=== PATIENT | male | born 1975 | race Caucasian/White ===

== ENCOUNTER 2020-11-29 13:07 | Emergency (ER) | payer BC ==
[~2020-11-29] VITALS: Ht 175.3 cm; Wt 83.9 kg
[~2020-11-29 13:07] MED LIST: ALBU90OI; ALBU90OI6 INH; CEPH500 PO; Flomax0.4 MG PO; HYDACE5 PO; HYDMOR4 PO; Ibuprofen Ib200 MG; NAPR500 PO; OXYACE5T PO; Zofran Odt8 MG SL
[2020-11-29 14:10] LABS: Alanine Aminotransfer (ALT/SGP 73 U/L (12-78); Albumin, Blood 4.5 g/dL (3.4-5.0); Albumin/Globulin Ratio 1.3 (0.8-1.8); Alk Phos 65 U/L (50-136); Anion Gap 5 mmol/L (6-16); Aspartate Aminotrans (AST/SGOT 101 U/L (12-37); BASOPHILS ABSOLUTE AUTO 0.06 K/mm3 (0.00-0.23); BASOPHILS PERCENT AUTO 0 % (0-2); Bilirubin, Total 0.9 mg/dL (0.1-1.0); Blood Urea Nitrogen 22 mg/dL (8-24); Bun/Creatinine Ratio 16.3 (12.0-20.0); CO2, Blood 27 mmol/L (21-32); Calcium, Blood 9.1 mg/dL (8.5-10.1); Chloride, Blood 100 mmol/L (98-108); Creatinine, Blood 1.35 mg/dL (0.60-1.20); EOSINOPHILS ABSOLUTE AUTO 0.01 K/mm3 (0.00-0.68); EOSINOPHILS PERCENT AUTO 0 % (0-6); Globulin, Blood 3.5 g/dL (2.2-4.0); Glomerular Filtration Rate >60 (60-); Glucose, Blood 109 mg/dL (70-99); Hematocrit 45.7 % (37.0-53.0); IMMATURE GRAN PERCENT AUTO 1 % (0-1); LYMPHOCYTES ABSOLUTE AUTO 1.08 K/mm3 (0.84-5.20); LYMPHOCYTES PERCENT AUTO 8 % (21-46); MONOCYTES PERCENT AUTO 6 % (4-13); Mean Corpuscular HGB 29.1 pg (26.0-34.0); Mean Corpuscular HGB Conc 32.8 g/dL (31.5-36.5); Mean Corpuscular Volume 89 fL (80-100); Mean Platelet Volume 11.7 fL (9.1-12.4); NEUTROPHILS ABSOLUTE AUTO 11.69 K/mm3 (1.96-9.15); NEUTROPHILS PERCENT AUTO 85 % (41-73); Platelet Count 270 K/mm3 (150-400); Potassium, Blood 3.8 mmol/L (3.5-5.5); RDW Standard Deviation 42.6 fL (35.1-46.3); Red Blood Cell Count 5.15 M/mm3 (4.30-5.90); Sodium, Blood 132 mmol/L (136-145); White Blood Cell Count 13.74 K/mm3 (4.00-11.30)
[2020-11-29] MEDS ORDERED: ONDA4ODT MM (15:19)
[2020-11-29] MEDS ORDERED: Flomax0.4 MG PO (15:19)
[2020-11-29] MEDS ORDERED: Norco 5-325 Ta1 EACH PO (15:19)
== END 2020-11-29 15:27 | disposition home or self-care (01) ==
LOC: ER 13:07
PROVIDERS: Emergency Medicine
DX: N13.2 Hydronephrosis with renal and ureteral calculous obstruction (principal); F17.200 Nicotine dependence, unspecified, uncomplicated
CPT/HCPCS: 36415; 74176; 80053; 83690; 85025; 93005; 93010; 96374; 99284-25; J1885

== ENCOUNTER 2024-12-25 06:08 | Day surgery (SDC) | payer BC ==
[~2024-12-25] VITALS: Ht 175.3 cm; Wt 82.0 kg
[~2024-12-25 06:08] MED LIST changes: +Norco 5-325 Ta1 EACH PO; +ONDA4ODT MM
[2024-12-25] MEDS ORDERED: CeFAZolin Sodium 2,000 MG VIAL ONE (06:31)
[2024-12-25] MEDS ORDERED: Lidocaine HCl 2% 10 ML SDA ONE (06:44)
[2024-12-25] MEDS ORDERED: Bupivacaine 0.5% W/EPI 1:200000 SDV 30 ML Vial ONE (07:13)
[2024-12-25] MEDS ORDERED: FentaNYL Citrate 50 MCG/ML 2 ML Injection ONE ×2 (07:20→09:36)
[2024-12-25] MEDS ORDERED: Ondansetron HCl 2 MG / ML 2ML Vial ONE (07:21)
[2024-12-25] MEDS ORDERED: Dexamethasone Sod Phos 10 MG/ML 1ML VIAL ONE (07:21)
[2024-12-25] MEDS ORDERED: Glycopyrrolate 0.2 MG/ML 5ML VIAL ONE (07:39)
[2024-12-25] MEDS ORDERED: ePHEDrine Sulfate 50 MG/ML 1ML Injection ONE (07:43)
[2024-12-25] MEDS ORDERED: HYDROcodone 5-APAP 325 TAB ONE (10:11)
[2024-12-25 10:21] VITALS: BP 125/92
--- NOTE | 2024-12-25 11:20 | NUR ---
12/25/24 1120 CarpioGamal PT REPORTS A MANAGEABLE LEVEL OF PAIN AND IS AGREEABLE TO D/C TO HOME.
== END 2024-12-25 11:18 | disposition home or self-care (01) ==
LOC: ORSCSDS 06:08
PROVIDERS: Podiatrist Foot & Ankle Surgery
PROC: 0QSR04Z Reposition Left Toe Phalanx with Internal Fixation Device, Open Approach (ICD-10-PCS; principal; 2024-12-25 07:30)
PROC: 0QSP04Z Reposition Left Metatarsal with Internal Fixation Device, Open Approach (ICD-10-PCS; principal; 2024-12-25 07:30)
DX: M20.12 Hallux valgus (acquired), left foot (principal); M79.672 Pain in left foot; F17.290 Nicotine dependence, other tobacco product, uncomplicated
CPT/HCPCS: A6253; A9270; C1713; J0690; J1100; J2003; J2405; J2704; J3010; J7120